=== PATIENT | female | born 1995 | race Hispanic/Latino ===

== ENCOUNTER 2020-04-13 15:17 | Emergency (ER) | payer OTHER ==
--- OUTSIDE RECORDS SUMMARY | 2020-04-13 15:20 | XMS REPORT | Continuity of Care Document ---
:1995 Author Organization [facility] t Address [address] [place] [address] Care Team Providers Name Role Phone ELLIE Attending Clinician Unavailable KATIE Attending Clinician Unavailable ELSIE Attending Clinician Unavailable ARIK Attending Clinician Unavailable GALE Attending Clinician Unavailable Problems Condition Condition Condition Status Onset Resolution Last Treating Co mments Source Name Details Category Date Date Treatment Clinician Date History of History of Problem Resolve Univers acute acute HL7.CCDAR2 d [place] [facility] [place] of History of Problem Resolve [facility] autistic autistic HL7.CCDAR2 d it y of disorder disorder [place] [facility] Facial Facial Problem Active Univers twitching twitching HL7.CCDAR2 ity of [place] [facility] Altered Altered Problem Active Univers mental mental HL7.CCDAR2 ity of status status [place] [facility] Anxiety Anxiety Problem Active Univers disorder disorder HL7.CCDAR2 it y of [place] [facility] Autism Autism Problem Active Univers spectrum spectrum HL7.CCDAR2 it y of [place] [facility] Insomnia Insomnia Problem Active Unive rs HL7.CCDAR2 ity of [place] [facility] Simple Simple Problem Active Univers tics tics HL7.CCDAR2 ity of [place] [facility] Agitation Agitation Problem Active Uni vers HL7.CCDAR2 ity of [place] [facility] Allergies, Adverse Reactions, Alerts Allergy Allergy Status Severity Reaction(s) Onset Inactive Treating Comm ents Source Name Type Date Date Clinician Penicill drug Active Univers ins allergy ity of [place] [facility] Family History Family Member Diagnosis Comments Start Date Stop Date Source Father Family history of Univers ity of hypertension [place] [facility] ians Father Family history of Univers ity of malignant neoplasm of [place] Physicians kidney Father Family history of Univers ity of hyperlipidemia [place] [facility] Social History Smoking Status Start Date Stop Date Source Never smoker [facility] [place] [facility] Medications Ordered Filled Start Stop Current Ordering Indication Dosage Frequency Signature Comments Components Source Medication Medication Date Date Medication? Clinician (SIG) Name Name Citalopram Citalopram Yes ANGEL 1 TAKE 1 Univers Hydrobromid Hydrobromid 1-26 TANNU M.D. TABLET ity of e 20 MG e 20 MG 00:00: EVERY [place] Oral Tablet Oral Tablet 00 MORNING Physici ans Depo-Family Therapist Depo-Family Therapist 2015-11 Yes ROBERT Univers a 150 MG/ML a 150 MG/ML -21 ARIK ity of Intramuscul Intramuscul 00:00: M.D. [place] ar ar 00 Physici Suspension Suspension ans HydrOXYzine HydrOXYzine Yes ANGEL 1 TAKE 1 Univers Pamoate 25 Pamoate 25 3-04 TANNU M.D. CAPSULE ity of MG Oral MG Oral 00:00[place] B[place]TIME [place] Capsule Capsule 00 [place] ans RisperiDONE RisperiDONE Yes ANGEL 1 TAKE 1 Univers 1 MG Oral 1 MG Oral 1-08 TANNU M.D. TABLET AT ity of Tablet Tablet 00:00: BEDTIME. [place] 00 Physici ans RisperiDONE RisperiDONE Yes ANGEL 1 TAKE 1 Univers 0.5 MG Oral 0.5 MG Oral TANNU M.D. TABLET ity of Tablet Tablet EVERY [place] MORNING Physici ans Immunizations Ordered Immunization Filled Immunization Date Status Commen ts Source Name Name Fluzone Quadrivalent 2016-10-29 Completed Univ ersity of 0.5 ML Intramuscular 12:57:00 Jessica casiano Physicians Suspension Vital Signs Vital Name Observation Time Observation Value Comments Source BP Systolic 2017-12-23 99 mm[Hg] Location: formerly [facility] 16:14:00 Position: [place] Physician s Sitting BP Diastolic 2017-12-23 62 mm[Hg] Location: formerly [facility] 16:14:00 Position: [place] Physician s Sitting Height 2017-12-23 62 [in_us] [facility] 16:14:00 [place] Physician s Weight 2017-12-23 124 [lb_av] [facility] 16:14:00 [place] [facility] s Body Mass Index 2017-12-23 22.68 kg/m2 [place] o f Calculated 16:14:00 [place] Phys[facility] s Temperature 2017-12-23 98 [degF] Method: Oral [facility] 16:14:00 [place] [facility] Heart Rate 2017-12-23 70 /min Quality: Normal University o f 16:14:00 [place] [facility] s Respiration Rate 2017-12-23 14 /min Quality: Normal Universi ty of 16:14:00 [place] Phys[facility] s O2 SAT 2017-12-23 100 % Source: [facility] 16:14:00 [place] Phys[facility] s BP Systolic 2017-10-13 99 mm[Hg] Location: formerly [facility] 09:15:00 Position: [place] Physician s Sitting BP Diastolic 2017-10-13 64 mm[Hg] Location: formerly [facility] 09:15:00 Position: [place] Physician s Sitting Height 2017-10-13 62 [in_us] [facility] 09:15:00 [place] [facility] s Weight 2017-10-13 124 [lb_av] [facility] 09:15:00 [place] [facility] s Body Mass Index 2017-10-13 22.68 kg/m2 University o f Calculated 09:15:00 [place] [facility] s Temperature 2017-10-13 98 [degF] Method: Oral University 09:15:00 [place] [facility] Heart Rate 2017-10-13 72 /min Quality: Normal University o f 09:15:00 [place] [facility] s Respiration Rate 2017-10-13 14 /min Quality: Normal Universi ty of 09:15:00 [place] [facility] s O2 SAT 2017-10-13 100 % Source: [facility] 09:15:00 [place] [facility] s Procedures Procedure Date / Time Performing Source Performed Clinician [QLH] TSH, 3RD GENERATION W/REFLEX 2017-09-08 [facility] FT4 00:00:00 [place] [facility] [QLH] URINALYSIS, COMPLETE 2017-09-08 Unive rsity of 00:00:00 [place] [facility] [QLH] CBC (INCLUDES DIFF/PLT) 2017-09-08 Un iversity of 00:00:00 [place] [facility] [QLH] CMP W/EGFR 2017-09-08 [facility] 00:00:00 [place] [facility] [QLH] VITAMIN B12 2017-09-08 [facility] 00:00:00 [place] [facility] [QLH] MAGNESIUM 2017-09-08 University 00:00:00 [place] [facility] [QLH] HEMOGLOBIN A1c 2017-09-08 [facility] 00:00:00 [place] [facility] [QLH] IRON AND TOTAL IRON BINDING 2017-09-08 [place] of CAPACITY 00:00:00 [place] [facility] [QLH] CULTURE, URINE, ROUTINE 2017-09-08 Un iversity of 00:00:00 [place] [facility] History of University of Esophagogastroduodenoscopy [place] [facility] Transoral Flexible Encounters Start End Encounter Admission Attending Care Care Encounter Source Date/Time Date/Time Type Type Clinicians Facility Department ID 2017-12-23 2017-12-23 LIZY Shook Psychiatry [id number] Univers 16:00:00 16:00:00 t; ANGEL ARGUETA ity of [place]IL[place], M.D. [place] M.D. Physici ans 2017-12-04 2017-12-04 LIZY Shook Psychiat[facility] [id number] Univers 15:30:00 15:30:00 t; ANGEL ARGUETA ity of [place], M.D. [place] Negrita Phys[facility] ans 2017-10-13 2017-10-13 LIZY Shook Psychiatry [id number] Univers 09:00:00 09:00:00 t; ANGEL ARGUETA ity of [place], M.D. [place] M.D. Physici ans 2017-09-10 2017-09-10 LIZY Shook [facility] [id number] Univers 15:30:00 15:30:00 t; ANGEL ARGUETA ity of [place], M.D. [place] M.D. Physici ans 2017-09-08 2017-09-08 LIZY Ortiz [facility] [id number] Univers 14:30:00 14:30:00 t; Fernanda LINDSEY M.D. [place] POURAN, Physici M.D. ans 2017-08-24 2017-08-24 LIZY Shook [facility] [id number] Univers 13:30:00 13:30:00 t; ANGEL ARGUETA ity of [place], M.D. [place] M.D. Physici ans 2017-07-23 2017-07-23 LIZY Shook [facility] [id number] Univers 11:00:00 11:00:00 t; ANGEL ARGUETA ity of [place], M.D. [place] M.D. Physici ans 2017-07-01 2017-07-01 LIZY Shook [facility] [id number] Univers 15:00:00 15:00:00 t; ANGEL ARGUETA ity of [place], M.D. [place] M.D. Physici ans 2017-06-23 2017-06-23 Appointmally ZIMMERMAN, LIZY UTP [id number] Univers 15:30:00 15:30:00 t; justin PASCUAL M.D. [place] RAGAVAN, Physici M.D. ans 2017-06-22 2017-06-22 Appointmen ELLIE, LIZY UTP [id number] Univers 15:30:00 15:30:00 t; ANGEL ARGUETA ity of [place], M.D. [place] M.D. Physici ans 2017-06-16 2017-06-16 Appointmen ELLIE, UTP UTP [id number] Univers 09:30:00 09:30:00 t; ANGEL ARGUETA ity of [place], M.D. [place] M.D. Physici ans 2017-04-21 2017-04-21 Linnea ZIMMERMAN, UTP UTP [id number] Univers 16:00:00 16:00:00 t; justin PASCUAL M.D. [place] Divya PASCUAL M.D. ans 2017-04-17 2017-04-17 Appointmen KATIE, LIZY UTP [id number] Univers 13:00:00 13:00:00 t; Fernanda LINDSEY M.D. [place] POURAN, Physici M.D. ans 2017-02-17 2017-02-17 Linnea ZIMMERMAN, LIZY UTP [id number] Univers 16:00:00 16:00:00 t; justin PASCUAL M.D. [place] Divya PASCUAL M.D. ans 2016-10-29 2016-10-29 Appointmen ARIK, LIZY UTP [id number] Univers 15:00:00 15:00:00 t; Tyler JONES M.D. [place] Divya JONES M.D. ans 2016-10-10 2016-10-10 Appointmen ELLIE, LIZY UTP [id number] Univers 13:00:00 13:00:00 t; ANGEL ARGUETA ity of [place], M.D. [place] M.D. Physici ans 2016-07-11 2016-07-11 Linnea ARGUETA UTP UTP [id number] Univers 16:30:00 16:30:00 t; ANGEL ARGUETA ity of [place], M.D. [place] M.D. Physici ans 2016-04-18 2016-04-18 [facility] LIZY ARGUETA UTP [id number] Univers 13:00:00 13:00:00 t; ANGEL ARGUETA ity of [place], M.D. [place] M.D. Physici ans 2015-12-05 2015-12-05 AppointLIZY Gao [facility] [id number] Univers 16:30:00 16:30:00 t; SHELDON BEASLEY M.D. i ty of Negr[place] CH[place]G Physici ans Results This patient has no known results.
[2020-04-13 16:13] LABS: Absolute Lymphocytes (CBC) 1.1 K/uL (0.7-4.9); Basophils % 0.3 % (0-1.3); Hematocrit 37.3 % (36.0-45.0); MPV 9.7 fL (7.6-11.3); RBC Red Blood Cell Count 4.16 M/uL (3.86-4.86)
[2020-04-13 16:37] LABS: BUN Blood Urea Nitrogen 13 mg/dL (7-18); Bicarbonate 25 mmol/L (21-32); Glucose Level 91 mg/dL (74-106); Potassium 4.1 mmol/L (3.5-5.1); Sodium Level 141 mmol/L (136-145); Troponin (Emerg Dept Use Only) < 0.02 ng/mL (0.0-0.045)
[2020-04-13] MEDS ORDERED: NA CHLORIDE 0.9% 1,000 ML ONE (16:37)
--- NOTE | 2020-04-13 16:41 | EDPHYS ---
Physician Documentation [facility] Name: Dory Hall Age: 25 yrs Sex: Female : 1995 Arrival Date: 04/13/2020 Time: 15:33 Bed 16 Private MD: ED Physician Gamaliel Joshi HPI: 04/13 16:21 This 25 yrs old Female presents to ER via EMS with complaints of Syncope. rn 16:21 The patient has experienced syncope. Onset: The symptoms/episode began/occurred just rn prior to arrival. Duration: This was a single episode. Associated injury: Head/face:. Associated signs and symptoms: The patient has no apparent associated signs or symptoms, Pertinent negatives: abdominal pain, chest pain, confusion, headache, seizure, vomiting, weakness. Current symptoms: Currently, the patient is not experiencing any symptoms. The patient has not experienced similar symptoms in the past. The patient has not recently seen a physician. Mother reports standing outside at [place], no recent complaints or problems, seemed to get lightheaded, started to fall, mother caught her, scraped face on fence structure, mother denies hitting head hard, states briefly passed out, woke up when on ground, now back to baseline. No hx of seizures or syncope. . 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 - Social history:: Smoking status: Patient denies any tobacco usage or history of. - Family history:: not pertinent. - Hospitalizations: : No recent hospitalization is reported. ROS: 16:21 Constitutional: Negative for fever, chills, and weight loss, Eyes: Negative for injury, rn pain, redness, and discharge, Cardiovascular: Negative for chest pain, palpitations, and edema, Respiratory: Negative for shortness of breath, cough, wheezing, and pleuritic chest pain, Abdomen/GI: Negative for abdominal pain, nausea, vomiting, diarrhea, and constipation, MS/Extremity: Negative for injury and deformity, Skin: Negative for injury, rash, and discoloration, Neuro: Negative for headache, weakness, numbness, tingling, and seizure. Exam: 16:21 Constitutional: This is a well developed, well nourished patient who is awake, alert, rn and in no acute distress. Head/Face: Normocephalic, atraumatic. Eyes: Pupils equal round and reactive to light, extra-ocular motions intact. Lids and lashes normal. Conjunctiva and sclera are non-icteric and not injected. Cornea within normal limits. Periorbital areas with no swelling, redness, or edema. ENT: MMM, no oral trauma, teeth aligned. Neck: Trachea midline, no thyromegaly or masses palpated, and no cervical lymphadenopathy. Supple, full range of motion without nuchal rigidity, or vertebral point tenderness. No Meningismus. Cardiovascular: Regular rate and rhythm. No pulse deficits. Respiratory: No increased work of breathing, no retractions or nasal flaring. Abdomen/GI: soft, non-tender Skin: Warm, dry with normal turgor. Normal color with no rashes, no lesions, and no evidence of cellulitis. MS/ Extremity: Pulses equal, no cyanosis. Neurovascular intact. Full, normal range of motion. Equal circumference. Neuro: Awake and alert, moves all 4 extremities without apparent pain, using electronic device, tracks my movements, but non-verbal. Per mother, neurologically at baseline. 16:27 ECG was reviewed by the Attending Physician. rn Vital Signs: 15:34 BP 102 / 67; Pulse 79; Resp 18; Temp 98.4(TE); Pulse Ox 100% on R/A; vc 17:01 BP 106 / 64; Pulse 84; Resp 18; Pulse Ox 100% on R/A; vc MDM: 15:35 Patient medically screened. rn 16:39 Differential Diagnosis: cardiac arrhythmia, idiopathic syncope, vasovagal episode. Data rn reviewed: vital signs, nurses notes, lab test result(s), EKG, and as a result, I will discharge patient. Counseling: I had a detailed discussion with the patient and/or guardian regarding: the historical points, exam findings, and any diagnostic results supporting the discharge/admit diagnosis, lab results, the need for outpatient follow up, to return to the emergency department if symptoms worsen or persist or if there are any questions or concerns that arise at home. Special discussion: I discussed with the patient/guardian in detail that at this point there is no indication for admission to the hospital. It is understood, however, that if the symptoms persist or worsen the patient needs to return immediately for re-evaluation. 04/13 15:45 Order name: CBC with Diff; Complete Time: 16:36 rn 04/13 15:45 Order name: Basic Metabolic Panel; Complete Time: 16:39 rn 04/13 15:45 Order name: IV Start; Complete Time: 16:15 rn 04/13 15:45 Order name: Troponin (emerg Dept Use Only); Complete Time: 16:39 rn 04/13 15:45 Order name: EKG; Complete Time: 15:46 rn 04/13 15:45 Order name: EKG - Nurse/Tech; Complete Time: 16:15 rn EC:27 Rate is 83 beats/min. Rhythm is regular. QRS [place] is Normal. [place] interval is normal. QRS rn interval is normal. QT interval is normal. No Q waves. T waves are Normal. No ST changes noted. Clinical impression: Normal ECG. Interpreted by me. Reviewed by me. Administered Medications: 16:30 Drug: NS 0.9% 1000 ml Route: IV; Rate: 1000 ml; Site: left antecubital; vc Disposition: 04/13/20 16:40 Discharged to Home. Impression: Syncope and collapse. - Condition is Stable. - Discharge Instructions: Syncope. - Medication Reconciliation Form, Thank You Letter, Antibiotic Education, Prescription Opioid Use form. - Follow up: Private Physician; When: As needed; Reason: Recheck today's complaints, Re-evaluation by your physician. - Problem is new. - Symptoms have improved. Signatures: Dispatcher [employer] EDMS Gamaliel Joshi MD MD rn Calcote, Vanessa, RN RN vc Corrections: (The following items were deleted from the chart) 17:17 16:40 04/13/2020 16:40 Discharged to Home. Impression: Syncope and collapse. Condition vc is Stable. Forms are Medication Reconciliation Form, Thank You Letter, Antibiotic Education, Prescription Opioid Use. Follow up: Private Physician; When: As needed; Reason: Recheck today's complaints, Re-evaluation by your physician. Problem is new. Symptoms have improved. rn
--- NOTE | 2020-04-13 16:41 | ER ---
Nurse's Notes [facility] Name: Dory Hall Age: 25 yrs Sex: Female : 1995 Arrival Date: 04/13/2020 Time: 15:33 Bed 16 Private MD: Diagnosis: Syncope and collapse Presentation: 04/13 15:34 Chief complaint: EMS states: "Patient was at [facility] when she had an episode of syncope, vc patient was unconscious for 2-3 seconds. When we arrived BP was 80/50, we administered 300 ml blood pressure increased to 114/68. She was orthostatic positive, pulse jumped from 70's to 95 when she sat up.". Coronavirus screen: Proceed with normal triage. Patient denies a cough. Patient denies shortness of breath or difficulty breathing. Patient denies measured and/or subjective temperature greater than 100.4F prior to today's visit. Patient denies travel on a cruise ship or to a country the [facility] currently lists as an affected area. Patient denies contact with known and/or suspected case of COVID-19. Ebola Screen: No symptoms or risks identified at this time. Initial Sepsis Screen: Does the patient meet any 2 criteria? No. Patient's initial sepsis screen is negative. Does the patient have a suspected source of infection? No. Patient's initial sepsis screen is negative. Risk Assessment: Do you want to hurt yourself or someone else? Unable to obtain. Onset of symptoms was April 13, 2020. 15:34 Method Of Arrival: EMS: [facility] vc 15:34 Acuity: GASPER 2 vc Triage Assessment: 16:00 General: Appears in no apparent distress. Behavior is calm, cooperative, flat, vc listless. Pain: Unable to use pain scale. Patient is a pre-verbal child. Neuro: Reports Patient is non-verbal. 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 - Social history:: Smoking status: Patient denies any tobacco usage or history of. - Family history:: not pertinent. - Hospitalizations: : No recent hospitalization is reported. Screenin:00 Abuse screen: Denies threats or abuse. Nutritional screening: No deficits noted. vc Tuberculosis screening: No symptoms or risk factors identified. Fall Risk Fall in past 12 months (25 points). No secondary diagnosis (0 pts). IV access (20 points). Ambulatory Aid- None/Bed Rest/Nurse Assist (0 pts). Gait- Normal/Bed Rest/Wheelchair (0 pts) Mental Status- Overestimates/Forgets Limitations (15 pts.). Assessment: 16:00 General: Appears in no apparent distress. uncomfortable, Behavior is calm, cooperative, vc appropriate for age. Pain: Unable to use pain scale. Does not appear to understand pain scale. Patient is a pre-verbal child. Neuro: Level of Consciousness is lethargic, listless, Oriented to person, Patient is non-verbal, autistic.. Cardiovascular: Rhythm is sinus rhythm. Respiratory: Respiratory effort is even, unlabored, Respiratory pattern is regular, symmetrical. GI: No signs and/or symptoms were reported involving the gastrointestinal system. : No signs and/or symptoms were reported regarding the genitourinary system. Derm: Skin is intact, is healthy with good turgor, Skin temperature is warm. Musculoskeletal: Circulation, motion, and sensation intact. Range of motion: intact in all extremities. 17:00 Reassessment: Patient appears in no apparent distress at this time. Patient and/or vc family updated on plan of care and expected duration. Pain level reassessed. Patient is alert, oriented x 3, equal unlabored respirations, skin warm/dry/pink. Patient states symptoms have improved. Vital Signs: 15:34 BP 102 / 67; Pulse 79; Resp 18; Temp 98.4(TE); Pulse Ox 100% on R/A; vc 17:01 BP 106 / 64; Pulse 84; Resp 18; Pulse Ox 100% on R/A; vc ED Course: 15:33 Patient arrived in ED. vc 15:35 Gamaliel Joshi MD is Attending Physician. rn 15:38 Triage completed. vc 15:53 Iram Tinsley RN is Primary Nurse. vc 16:00 Arm band placed on right wrist. vc 17:00 No provider procedures requiring assistance completed. IV discontinued, intact, vc bleeding controlled, No redness/swelling at site. Pressure dressing applied. Administered Medications: 16:30 Drug: NS 0.9% 1000 ml Route: IV; Rate: 1000 ml; Site: left antecubital; vc Outcome: 16:40 Discharge ordered by . rn 17:15 Discharged to home ambulatory, with family. vc 17:15 Condition: good 17:15 Discharge instructions given to patient, family, Instructed on discharge instructions, follow up and referral plans. Demonstrated understanding of instructions, follow-up care. 17:17 Patient left the ED. vc Signatures: Gamaliel Joshi MD MD rn Calcote, Vanessa, RN RN vc Corrections: (The following items were deleted from the chart) 22:54 22:49 General: Appears in no apparent distress. uncomfortable, Behavior is calm, vc cooperative, appropriate for age, vc 22:54 22:49 Pain: Unable to use pain scale. Does not appear to understand pain scale. Patient vc is a pre-verbal child. vc 22: 22:49 Neuro: Level of Consciousness is lethargic, listless, Oriented to person, Patient vc is non-verbal, autistic.. vc 22:54 22:49 Cardiovascular: Rhythm is sinus rhythm vc vc 22:54 22:49 Respiratory: Respiratory effort is even, unlabored, Respiratory pattern is vc regular, symmetrical, vc 22:54 22:49 GI: No signs and/or symptoms were reported involving the gastrointestinal system. vc vc 22:54 22:49 : No signs and/or symptoms were reported regarding the genitourinary system. vc vc 22: 22:49 Derm: Skin is intact, is healthy with good turgor, Skin temperature is warm vc vc 22:54 22:49 Musculoskeletal: Circulation, motion, and sensation intact. Range of motion: vc intact in all extremities, vc
[2020-04-13 17:25] VITALS: BP 102/67; TEMP 98.4; O2SAT 100
== END 2020-04-13 17:17 | disposition home or self-care (01) ==
LOC: ER 15:17
DX: R55 Syncope and collapse (principal); F84.0 Autistic disorder
CPT/HCPCS: 93005; 85025; 80048; 36415; 84484; 99284; J7030

== ENCOUNTER 2020-12-21 17:30 | Emergency (ER) | payer OTHER ==
--- NOTE | 2020-12-21 18:49 | ER ---
Nurse's Notes [facility] Name: Dory Hall Age: 25 yrs Sex: Female : 1995 Arrival Date: 12/21/2020 Time: 17:34 Bed Waiting Private MD: Diagnosis: Pain in throat Presentation: 12/21 18:03 Chief complaint: Patient states: Possible sore throat for 2 days. No fever. Seems to ll1 hurt when swallowing food. Coronavirus screen: Client denies travel out of the [place] in the last 14 days. sore throat, Client presents with at least one sign or symptom that may indicate coronavirus-19. Standard/surgical mask placed on the client. Ebola Screen: Patient denies travel to an Ebola-affected area in the 21 days before illness onset. Initial Sepsis Screen: Does the patient meet any 2 criteria? No. Patient's initial sepsis screen is negative. Does the patient have a suspected source of infection? Yes: Other: throat. Risk Assessment: Do you want to hurt yourself or someone else? Patient reports no desire to harm self or others. Onset of symptoms was December 20, 2020. 18:03 Method Of Arrival: Ambulatory ll1 18:03 Acuity: GASPER 4 ll1 Triage Assessment: 18:10 General: Appears in no apparent distress. Behavior is calm, appropriate for age, ll1 uncooperative. Pain: Complains of pain in throat Quality of pain is described as aching. EENT: Throat unable to visualize well, patient autistic and trouble following commands. . Reports pain when swallowing. Neuro: No deficits noted. Cardiovascular: No deficits noted. Respiratory: No deficits noted. CLERK GUIDE: 19:12 LMP N/A - control method ll1 Historical: - Allergies: 18:03 No Known Allergies; ll1 - PMHx: 18:03 Autism; Non-Verbal; GERD; ll1 - PSHx: 18:03 None; ll1 - Immunization history:: Adult Immunizations up to date. - Social history:: Smoking status: Patient denies any tobacco usage or history of. Screenin:10 Abuse screen: Denies threats or abuse. Nutritional screening: No deficits noted. ll1 Tuberculosis screening: No symptoms or risk factors identified. Fall Risk Mental Status- Overestimates/Forgets Limitations (15 pts.). Total Taveras Fall Scale indicates No Risk (0-24 pts). Assessment: 19:11 Respiratory: Airway is patent Trachea midline Respiratory effort is even, unlabored, ll1 Respiratory pattern is regular, symmetrical, Breath sounds are clear bilaterally. 19:11 Reassessment: No changes from previously documented assessment. Patient and/or family ll1 updated on plan of care and expected duration. Pain level reassessed. Patient is alert, oriented x 3, equal unlabored respirations, skin warm/dry/pink. Vital Signs: 18:03 BP 112 / 69; Pulse 67; Resp 16; Temp 99.0; Pulse Ox 99% ; Weight 56.7 kg; Height 5 ft. ll1 2 in. (157.48 cm); Pain 2/10; 18:03 Body Mass Index 22.86 (56.70 kg, 157.48 cm) ll1 ED Course: 17:34 Patient arrived in ED. ds1 17:44 Brea Acevedo FNP-C is [facility]. kb 17:44 Johnny Bright MD is Attending Physician. kb 17:56 Arm band placed on. ll1 18:05 Triage completed. ll1 19:09 Amaya Thrasher RN is Primary Nurse. ll1 19:12 Patient has correct armband on for positive identification. Bed in low position. Call ll1 light in reach. Cardiac monitoring not applicable on this patient. 19:12 oral/throat exam. Patient did not have IV access during this emergency room visit. ll1 Administered Medications: 19:08 Drug: GI Cocktail without - (Maalox Suspension 30 ml, Lidocaine Liquid 2 % 15 ll1 ml) Route: PO; 19:11 Follow up: Response: No adverse reaction; RASS: Alert and Calm (0) ll1 Outcome: 18:48 Discharge ordered by . kb 19:12 Discharged to home ambulatory. ll1 19:12 Condition: stable 19:12 Discharge instructions given to patient, family, Instructed on discharge instructions, follow up and referral plans. Demonstrated understanding of instructions, follow-up care. 19:12 Patient left the ED. ll1 Signatures: Brea Acevedo FNP-C FNP-Ckb Sanford, Demi ds1 Amaya Thrasher RN RN ll1
--- NOTE | 2020-12-21 18:49 | EDPHYS ---
Physician Documentation [facility] Name: Dory Hall Age: 25 yrs Sex: Female : 1995 Arrival Date: 12/21/2020 Time: 17:34 Bed Waiting Private MD: ED Physician Johnny Bright HPI: 12/21 18:45 This 25 yrs old Female presents to ER via Ambulatory with complaints of Sore kb Throat. 18:45 The patient presents with sore throat. The patient describes throat pain as constant. kb Onset: The symptoms/episode began/occurred yesterday. Severity of symptoms: At their worst the symptoms were moderate, in the emergency department the symptoms are unchanged. Modifying factors: The symptoms are alleviated by nothing, the symptoms are aggravated by swallowing. Associated signs and symptoms: Pertinent positives: Sore throat Pertinent negatives cough, fever, flu-like symptoms, rhinorrhea. The patient has not experienced similar symptoms in the past. The patient has not recently seen a physician. Mother reports pt has been acting like her throat hurts since yesterday. States she seems to have pain with swallowing. Denies fever, cough, congestion or any other symptoms. DIRECTOR OF MARKET RESEARCH: 19:12 LMP N/A - control method ll1 Historical: - Allergies: 18:03 No Known Allergies; ll1 - PMHx: 18:03 Autism; Non-Verbal; GERD; ll1 - PSHx: 18:03 None; ll1 - Immunization history:: Adult Immunizations up to date. - Social history:: Smoking status: Patient denies any tobacco usage or history of. ROS: 18:44 Constitutional: Negative for fever, chills, and weight loss, Cardiovascular: Negative kb for chest pain, palpitations, and edema, Respiratory: Negative for shortness of breath, cough, wheezing, and pleuritic chest pain, Abdomen/GI: Negative for abdominal pain, nausea, vomiting, diarrhea, and constipation, MS/Extremity: Negative for injury and deformity, Skin: Negative for injury, rash, and discoloration, Neuro: Negative for headache, weakness, numbness, tingling, and seizure. 18:44 ENT: Positive for sore throat. Exam: 18:44 Constitutional: This is a well developed, well nourished patient who is awake, alert, kb and in no acute distress. Head/Face: Normocephalic, atraumatic. ENT: Nares patent. No nasal discharge, no septal abnormalities noted. Tympanic membranes are normal and external auditory canals are clear. Oropharynx with no redness, swelling, or masses, exudates, or evidence of obstruction, uvula midline. Mucous membranes moist. Skin: Warm, dry with normal turgor. Normal color with no rashes, no lesions, and no evidence of cellulitis. 18:44 Respiratory: the patient does not display signs of respiratory distress, Respirations: normal. 18:44 Neuro: Exam negative for acute changes. Vital Signs: 18:03 BP 112 / 69; Pulse 67; Resp 16; Temp 99.0; Pulse Ox 99% ; Weight 56.7 kg; Height 5 ft. ll1 2 in. (157.48 cm); Pain 2/10; 18:03 Body Mass Index 22.86 (56.70 kg, 157.48 cm) ll1 MDM: 18:19 Patient medically screened. kb 18:43 Data reviewed: vital signs, nurses notes. Data interpreted: Pulse oximetry: on room air kb is 99 %. Interpretation: normal. Counseling: I had a detailed discussion with the patient and/or guardian regarding: the historical points, exam findings, and any diagnostic results supporting the discharge/admit diagnosis, lab results, the need for outpatient follow up, a family practitioner, to return to the emergency department if symptoms worsen or persist or if there are any questions or concerns that arise at home. 02 18:14 Order name: Strep; Complete Time: 18:43 kb 02 18:43 Order name: Throat Culture EDMS Administered Medications: 19:08 Drug: GI Cocktail without - (Maalox Suspension 30 ml, Lidocaine Liquid 2 % 15 ll1 ml) Route: PO; 19:11 Follow up: Response: No adverse reaction; RASS: Alert and Calm (0) ll1 Disposition: 12/21/20 18:48 Discharged to Home. Impression: Pain in throat. - Condition is Stable. - Discharge Instructions: Sore Throat, [id number]. - Medication Reconciliation Form, Thank You Letter, Antibiotic Education, Prescription Opioid Use form. - Follow up: Emergency Department; When: As needed; Reason: Worsening of condition. Follow up: Private Physician; When: 2 - 3 days; Reason: Recheck today's complaints, Continuance of care, Re-evaluation by your physician. Addendum: 12/23/2020 14:33 Co-signature as Attending Physician, Johnny Bright MD I agree with the assessment and k dr plan of care. Signatures: Dispatcher [employer] EDMS Brea Acevedo, SELF SEALING FUEL TANK BUILDER-C SELF SEALING FUEL TANK BUILDER-Ckb Johnny Bright MD MD [facility] Amaya Thrasher RN RN ll1 Corrections: (The following items were deleted from the chart) 12/21 19:12 18:48 12/21/2020 18:48 Discharged to Home. Impression: Pain in throat. Condition is ll1 Stable. Forms are Medication Reconciliation Form, Thank You Letter, Antibiotic Education, Prescription Opioid Use. Follow up: Emergency Department; When: As needed; Reason: Worsening of condition. Follow up: Private Physician; When: 2 - 3 days; Reason: Recheck today's complaints, Continuance of care, Re-evaluation by your physician. kb
[2020-12-21 19:17] VITALS: BP 112/69; TEMP 99; O2SAT 99
[2020-12-21] MEDS ORDERED: MAGNES/ALUMIN/SIMET 30ML UCUP ONE (19:20)
[2020-12-21] MEDS ORDERED: LIDOCAINE VISCOUS 2% SOLN 15 ML UDC ONE (19:20)
== END 2020-12-21 19:12 | disposition home or self-care (01) ==
LOC: ER 17:30
DX: R07.0 Pain in throat (principal); F84.0 Autistic disorder
CPT/HCPCS: 87070; 87081; 99283

== ENCOUNTER 2022-05-02 16:53 | Emergency (ER) | payer BC, OTHER ==
--- OUTSIDE RECORDS SUMMARY | 2022-05-02 16:56 | XMS REPORT | Continuity of Care Document ---
:1995 Author Organization [facility] t Address [address] [place] [address] Care Team Providers Name Role Phone ELLIE Attending Clinician Unavailable KATIE Attending Clinician Unavailable ELSIE Attending Clinician Unavailable ARIK Attending Clinician Unavailable GALE Attending Clinician Unavailable Problems Condition Condition Condition Status Onset Resolution Last Treating Co mments Source Name Details Category Date Date Treatment Clinician Date History of History of Problem Resolve [facility] acute acute HL7.CCDAR2 d Physic i sinusitis sinusitis ans History of History of Problem Resolve [facility] autistic autistic HL7.CCDAR2 d Ph ysici disorder disorder ans Facial Facial Problem Active [facility] twitching twitching HL7.CCDAR2 Physici ans Altered Altered Problem Active [facility] mental mental HL7.CCDAR2 Physic i status status ans Anxiety Anxiety Problem Active [facility] disorder disorder HL7.CCDAR2 Ph ysici ans Autism Autism Problem Active UT spectrum spectrum HL7.CCDAR2 Ph ysici ans Insomnia Insomnia Problem Active [facility] HL7.CCDAR2 Physic i ans Simple Simple Problem Active [facility] tics tics HL7.CCDAR2 Physic i ans Agitation Agitation Problem Active [facility] HL7.CCDAR2 Physic i ans Allergies, Adverse Reactions, Alerts Allergy Allergy Status Severity Reaction(s) Onset Inactive Treating Comm ents Source Name Type Date Date Clinician Penicill drug Active [facility] ins allergy Physici ans Family History Family Member Diagnosis Comments Start Date Stop Date Source Father Family history of [facility] hypertension Father Family history of malignant [facility] neoplasm of kidney Father Family history of [facility] hyperlipidemia Social History Smoking Status Start Date Stop Date Source Never smoker [facility] Medications Ordered Filled Start Stop Current Ordering Indication Dosage Frequency Signature Comments Components Source Medication Medication Date Date Medication? Clinician (SIG) Name Name Citalopram Citalopram 2018-0 Yes ANGEL 1 TAKE 1 [facility] Hydrobromid Hydrobromid 12-04 TANNU M.D. TABLET Physici e 20 MG e 20 MG 00:00: EVERY ans Oral Tablet Oral Tablet 00 MORNING Depo-Parking Meter Attendant Depo-Parking Meter Attendant 2015-11 Yes ROBERT UT a 150 MG/ML a 150 MG/ML 12-30 ARIK Physici Intramuscul Intramuscul 00:00: M.D. ans ar ar 00 Suspension Suspension HydrOXYzine HydrOXYzine Yes ANGEL 1 TAKE 1 UT Pamoate 25 Pamoate 25 3-04 TANNU M.D. CAPSULE Physici MG Oral MG Oral 00:00: BEDTIME ans Capsule Capsule 00 RisperiDONE RisperiDONE Yes ANGEL 1 TAKE 1 UT 1 MG Oral 1 MG Oral 108 TANNU M.D. TABLET AT Physici Tablet Tablet 00:00: BEDTIME. ans 00 RisperiDONE RisperiDONE Yes ANGEL 1 TAKE 1 UT 0.5 MG Oral 0.5 MG Oral TANNU M.D. TABLET Physici Tablet Tablet EVERY ans MORNING Immunizations Ordered Immunization Filled Immunization Date Status Commen ts Source Name Name Fluzone Quadrivalent 2016-10-29 Completed [facility]ys[facility] 0.5 ML Intramuscular 12:57:00 Suspension Vital Signs Vital Name Observation Time Observation Value Comments Source BP Systolic 2017-12-23 16:14:00 99 mm[Hg] Location: [facility] [place] [facility] Position: Sitting BP Diastolic 2017-12-23 16:14:00 62 mm[Hg] Location: [facility] Position: Sitting Height 2017-12-23 16:14:00 62 [in_us] [facility] Weight 2017-12-23 16:14:00 124 [lb_av] [facility] Body Mass Index 2017-12-23 16:14:00 22.68 kg/m2 [facility] Calculated Temperature 2017-12-23 16:14:00 98 [degF] Method: Oral [facility] Heart Rate 2017-12-23 16:14:00 70 /min Quality: Normal [facility] Respiration Rate 2017-12-23 16:14:00 14 /min Quality: Normal [facility] O2 SAT 2017-12-23 16:14:00 100 % Source: RA [facility] BP Systolic 2017-10-13 09:15:00 99 mm[Hg] Location: [facility] Position: Sitting BP Diastolic 2017-10-13 09:15:00 64 mm[Hg] Location: LUE; [facility] Position: Sitting Height 2017-10-13 09:15:00 62 [in_us] [facility] Weight 2017-10-13 09:15:00 124 [lb_av] [facility] Body Mass Index 2017-10-13 09:15:00 22.68 kg/m2 [facility] Calculated Temperature 2017-10-13 09:15:00 98 [degF] Method: Oral [facility] Heart Rate 2017-10-13 09:15:00 72 /min Quality: Normal [facility] Respiration Rate 2017-10-13 09:15:00 14 /min Quality: Normal [facility] O2 SAT 2017-10-13 09:15:00 100 % Source: RA [facility] Procedures Procedure Date / Time Performing Source Performed Clinician [QLH] TSH, 3RD GENERATION W/REFLEX 2017-09-08 [facility] TO FT4 00:00:00 [QLH] URINALYSIS, COMPLETE 2017-09-08 [facility] 00:00:00 [QLH] CBC (INCLUDES DIFF/PLT) 2017-09-08 [facility] 00:00:00 [QLH] CMP W/EGFR 2017-09-08 [facility] 00:00:00 [QLH] VITAMIN B12 2017-09-08 [facility] 00:00:00 [QLH] MAGNESIUM 2017-09-08 [facility] 00:00:00 [QLH] HEMOGLOBIN A1c 2017-09-08 [facility] ns 00:00:00 [QLH] IRON AND TOTAL IRON BINDING 2017-09-08 [facility] CAPACITY 00:00:00 [QLH] CULTURE, URINE, ROUTINE 2017-09-08 [facility] 00:00:00 History of [facility] Esophagogastroduodenoscopy Transoral Flexible Encounters Start End Encounter Admission Attending Care Care Encounter Source Date/Time Date/Time Type Type Clinicians Facility Department ID 2017-12-23 2017-12-23 [facility] [id number] [place] 16:00:00 16:00:00 t; ANGEL ARGUETA Phys ici NILESH, M.D. ans M.D. 2017-12-04 2017-12-04 [facility] [id number] [place] 15:30:00 15:30:00 t; ANGEL ARGUETA Phys ici NILESH, M.D. ans M.D. 2017-10-13 2017-10-[facility], [facility] [id number] [place] 09:00:00 09:00:00 t; ANGEL ARGUETA Phys Negrita Ordaz MHollis 2017-09-10 2017-09-10 [facility] ELLIE, [facility] [id number] [place] 15:30:00 15:30:00 t; ANGEL ARGUETA Phys Negrita Ordaz MHollis 2017-09-08 2017-09-08 [facility] KATIE, [facility] [id number] [place] 14:30:00 14:30:00 t; Richard LINDSEY i, M.D. ans POURAN, M.D. 2017-08-24 2017-08-24 [facility] BEATAAidan, [facility] [id number] [place] 13:30:00 13:30:00 t; ANGEL ARGUETA Phys ici NILESH, M.D. ans M.D. 2017-07-23 2017-07-23 [facility] ELLIE, [facility] [id number] [place] 11:00:00 11:00:00 t; ANGEL ARGUETA Phys ici NILESH, M.D. ans MHollis 2017-07-01 2017-07-01 [facility] BEATAU, [facility] [id number] [place] 15:00:00 15:00:00 t; ANGEL ARGUETA Phys ici NILESH, M.D. ans M.D. 2017-06-23 2017-06-23 [facility] ELSIE, [facility] [id number] [place] 15:30:00 15:30:00 t; Lottie PASCUAL M.D. ans RAGAVAN, M.D. 2017-06-22 2017-06-22 [facility] ELLIE, [facility] [id number] [place] 15:30:00 15:30:00 t; ANGEL ARGUETA Phys Negrita Ordaz MHollis 2017-06-16 2017-06-16 [facility] ELLIE, [facility] [id number] [place] 09:30:00 09:30:00 t; TANNU, [place] ORTIZ M.D. ans M.D. 2017-04-21 2017-04-21 [facility] ELSIE, [facility] [id number] [place] 16:00:00 16:00:00 t; ANKUR Physi Negrita Espino M.D. 2017-04-17 2017-04-17 [facility] KATIE, [facility]TP [id number] [place] 13:00:00 13:00:00 t; Richard LINDSEY i, M.D. ans POURAN, M.D. 2017-02-17 2017-02-17 [facility] ELSIE, [facility] [id number] [place] 16:00:00 16:00:00 t; ANKUR Physi Negrita Espino M.D. 2016-10-29 2016-10-29 [facility] ARIK, [facility] [id number] [place] 15:00:00 15:00:00 t; Richard JONES i, M.D. ans CARMAN, M.D. 2016-10-10 2016-10-10 [facility] ELLIE, [facility] [id number] [place] 13:00:00 13:00:00 t; ANGEL ARGUETA Phys ici NILESH, M.D. ans M.D. 2016-07-11 2016-07-11 [facility] ELLIE, [facility] [id number] [place] 16:30:00 16:30:00 t; ANGEL ARGUETA Phys ici NILESH, M.D. ans M.D. 2016-04-18 2016-04-18 [facility] ELLIE, [facility] [id number] [place] 13:00:00 13:00:00 t; ANGEL ARGUETA Phys ici NILESH, M.D. ans M.D. 2015-12-05 2015-12-05 [facility] GALE, [facility]TP [id number] [place] 16:30:00 16:30:00 t; SHELDON BEASLEY M.D. P hysici SABA, M.D. ans Results This patient has no known results.
[2022-05-02] MEDS ORDERED: LORazepam 2 MG/ML VIAL ONE (19:18)
[2022-05-02 19:22] LABS: Lymphocytes % 29.5 % (15.3-44.8); MPV 9.5 fL (7.6-11.3); RBC Red Blood Cell Count 4.56 M/uL (3.86-4.86)
[2022-05-02 19:36] LABS: Albumin 3.5 g/dL (3.4-5.0); Bilirubin Total 0.3 mg/dL (0.2-1.0); Potassium 3.7 mmol/L (3.5-5.1); Protein, Total 7.2 g/dL (6.4-8.2)
[2022-05-02 21:04] LABS: Urine Blood Negative (Negative); Urine Glucose Trace (Negative); Urine Protein Negative (Negative)
--- NOTE | 2022-05-02 22:04 | RAD REPORT ---
EXAM DESCRIPTION: CT - Stone Protocol - 05/02/2022 9:45 pm CLINICAL HISTORY: urinary retention COMPARISON: <Comparisons> TECHNIQUE: Axial 3 mm thick images were obtained without oral or IV contrast. The [id number] span s the entirety of the system including uppermost abdomen and lung bases. All CT scans are performed using dose optimization technique as appropriate and may include automated exposure control or mA/KV adjustment according to patient size. FINDINGS: No hydronephrosis is present and no obstructing ureteral calculi. No suspicious renal mass es. Isodense masses and pyelonephritis are not excluded on a stone protocol CT scan. No significant a drenal finding. Urinary bladder is contracted around a Armas catheter. No bladder calculi seen. No ut erine or ovarian abnormality identifiable. Imaged portions of the liver, spleen and pancreas show no suspicious findings on non-contrast imaging . Gallbladder is contracted. No biliary tree dilatation. No dilated bowel. Acute GI finding is not confirmed. The amount of body movement limits the middle or pelvic bowel assessment. No hernia, mass or bulky lymphadenopathy noted. No free air, free fluid or inflammatory stranding. No significant bony abnormality. IMPRESSION: No hydronephrosis or acute finding. Urinary bladder is contracted around a Armas cath eter. Isodense masses and pyelonephritis are not excluded on stone protocol technique. Exam has motion degradation which is somewhat limiting. No acute findings are identifiable.
[2022-05-02 22:14] LABS: Urine Bacteria <20 /HPF (<20); Urine Mucus MOD /HPF (NONE SEEN); Urine RBC NONE SEEN /HPF (NONE SEEN)
--- NOTE | 2022-05-02 22:55 | EDPHYS ---
Physician Documentation [facility] Name: Dory Hall Age: 27 yrs Sex: Female : 1995 Arrival Date: 05/02/2022 Time: 16:59 Bed 26 Private MD: ED Physician Gamaliel Joshi HPI: 05/02 18:40 This 27 yrs old Female presents to ER via Ambulatory with complaints of cp Urinary Retention. 18:40 The patient presents with urinary symptoms, urinary retention. Onset: The cp symptoms/episode began/occurred today. Associated signs and symptoms: Pertinent negatives: diarrhea, fever, vomiting, constipation. Severity of symptoms: in the emergency department the symptoms are unchanged, despite home interventions. 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 - Social history:: Smoking status: Patient denies any tobacco usage or history of. ROS: 18:45 Constitutional: Negative for body aches, chills, fever, poor PO intake. cp 18:45 Eyes: Negative for injury, pain, redness, and discharge. cp 18:45 ENT: Negative for ear pain, sore throat, difficulty swallowing, difficulty handling secretions. 18:45 Cardiovascular: Negative for chest pain. 18:45 Respiratory: Negative for cough, shortness of breath, wheezing. 18:45 Abdomen/GI: Negative for abdominal pain, vomiting, diarrhea, constipation. 18:45 : Positive for difficulty urinating. 18:45 Neuro: Negative for altered mental status. 18:45 All other systems are negative. Exam: 18:50 Constitutional: The patient appears in no acute distress, alert, awake, non-toxic, well cp developed, well nourished. 18:50 Head/Face: Normocephalic, atraumatic. cp 18:50 Eyes: Periorbital structures: appear normal, Conjunctiva: normal, no exudate, no injection, Sclera: no appreciated abnormality, Lids and lashes: appear normal, bilaterally. 18:50 ENT: External ear(s): are unremarkable, Nose: is normal, Mouth: Lips: moist, Oral mucosa: moist, Posterior pharynx: Airway: no evidence of obstruction, patent. 18:50 Chest/axilla: Inspection: normal. 18:50 Cardiovascular: Rate: normal. 18:50 Respiratory: the patient does not display signs of respiratory distress, Respirations: normal, no use of accessory muscles, no retractions, labored breathing, is not present, Breath sounds: are clear throughout, no decreased breath sounds, no stridor, no wheezing. 18:50 Abdomen/GI: Inspection: abdomen appears normal, Palpation: abdomen is soft and non-tender, in all quadrants. 18:50 Back: CVA tenderness, is absent. 18:50 Neuro: Orientation: to person, place \T\ time. Mentation: is normal, Motor: moves all fours, strength is normal. Vital Signs: 18:19 Pulse 78; Resp 17; Temp 99.1; Pulse Ox 100% on R/A; Weight 51.26 kg; Height 5 ft. 4 in. jl7 (162.56 cm); 23:06 BP 115 / 67; Pulse 78; Resp 16; Pulse Ox 98% on R/A; jb4 18:19 Body Mass Index 19.40 (51.26 kg, 162.56 cm) jl7 MDM: 18:15 Patient medically screened. cp 22:53 Data reviewed: vital signs, nurses notes. Data interpreted: Pulse oximetry: on room air kb is 100 %. Interpretation: normal. Counseling: I had a detailed discussion with the patient and/or guardian regarding: the historical points, exam findings, and any diagnostic results supporting the discharge/admit diagnosis, lab results, radiology results, the need for outpatient follow up, a urologist, to return to the emergency department if symptoms worsen or persist or if there are any questions or concerns that arise at home. ED course: Parents do not want pt to go home with the leonard due to fear that pt will pull it out. Requests that we remove it prior to discharge. Educated on risk of having to return to replace leonard if symptoms return. Parents understand and are ok with coming back if needed. . 05/02 18:32 Order name: Urine Microscopic Only; Complete Time: 22:33 cp 05/02 19:05 Order name: CBC with Diff; Complete Time: 19:57 cp 05/02 19:05 Order name: CMP; Complete Time: 19:57 cp 05/02 19:05 Order name: Lipase; Complete Time: 19:57 cp 05/02 21:04 Order name: Urine Dipstick-Ancillary; Complete Time: 22:33 EDMS 05/02 21:40 Order name: Urine --Ancillary (enter results); Complete Time: 22:33 wm 05/02 18:16 Order name: Bladder Scanner: pre and post void; Complete Time: 19:09 cp 05/02 18:32 Order name: Urine Dipstick-Ancillary (obtain specimen); Complete Time: 21:03 cp 05/02 18:32 Order name: Urine Test (obtain specimen); Complete Time: 21:03 cp 05/02 18:42 Order name: Leonard; Complete Time: 20:58 cp 05/02 19:05 Order name: IV Saline Lock; Complete Time: 19:08 cp 05/02 19:05 Order name: Labs collected and sent; Complete Time: 19:08 cp 05/02 19:57 Order name: CT Stone Protocol; Complete Time: 22:33 cp Administered Medications: 19:14 Drug: Ativan (LORazepam) 1 mg Route: IVP; Site: right antecubital; jb4 20:00 Follow up: Response: No adverse reaction jb4 Disposition Summary: 05/02/22 22:55 Discharge Ordered Location: Home kb Condition: Stable kb Diagnosis - Retention of urine, unspecified kb Followup: kb - With: Emergency Department - When: As needed - Reason: Worsening of condition Followup: kb - With: Private Physician - When: 2 - 3 days - Reason: Recheck today's complaints, Continuance of care, Re-evaluation by your physician Discharge Instructions: - Discharge Summary Sheet kb - Acute Urinary Retention, Female, [id number] kb Forms: - Medication Reconciliation Form kb - Thank You Letter kb - Antibiotic Education kb - Prescription Opioid Use kb Addendum: 05/05/2022 10:53 Co-signature as Attending Physician, Gamaliel Joshi MD. r n Signatures: Dispatcher [employer] EDBrea Heredia, DIRECTORY CLERK-C DIRECTORY CLERK-Ckb Gamaliel Joshi MD MD rn Page, Corey, PA PA Rhys England RN RN jb4 Panchito Nichole RN RN jl7 Corrections: (The following items were deleted from the chart) 05/02 20:36 20:35 The patient presents with urinary symptoms, urinary retention, cp cp :36 20:35 Onset: The symptoms/episode began/occurred today, cp cp : 20:35 Associated signs and symptoms: Pertinent negatives: diarrhea, fever, vomiting, cp constipation, cp : 20:35 Severity of symptoms: in the emergency department the symptoms are unchanged, cp despite home interventions, cp
--- NOTE | 2022-05-02 22:55 | ER ---
Nurse's Notes [facility] Name: Dory Hall Age: 27 yrs Sex: Female : 1995 Arrival Date: 05/02/2022 Time: 16:59 Bed 26 Private MD: Diagnosis: Retention of urine, unspecified Presentation: 05/02 18:19 Chief complaint: Parent and/or Guardian states: No urine output since yesterday. jl7 Coronavirus screen: At this time, the client does not indicate any symptoms associated with coronavirus-19. Ebola Screen: No symptoms or risks identified at this time. Initial Sepsis Screen: Does the patient meet any 2 criteria? No. Patient's initial sepsis screen is negative. Does the patient have a suspected source of infection? No. Patient's initial sepsis screen is negative. Risk Assessment: Do you want to hurt yourself or someone else? Patient reports no desire to harm self or others. Onset of symptoms is unknown. 18:19 Method Of Arrival: Ambulatory 7 18:19 Acuity: GASPER 3 jl7 Triage Assessment: 18:20 General: Appears in no apparent distress. uncomfortable, Behavior is cooperative. Pain: jl7 Unable to use pain scale. Does not appear to understand pain scale. 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 - Social history:: Smoking status: Patient denies any tobacco usage or history of. Screenin:06 Abuse screen: Denies threats or abuse. Nutritional screening: No deficits noted. jb4 Tuberculosis screening: No symptoms or risk factors identified. Fall Risk None identified. Assessment: 18:43 General: Appears in no apparent distress. uncomfortable, Behavior is appropriate for jb4 age. Pain: Complains of pain in suprapubic area Unable to use pain scale. FLACC scale score is 6 out of 10. Neuro: Level of Consciousness is awake, alert, Oriented to none. Cardiovascular: Patient's skin is warm and dry. Respiratory: Airway Respiratory effort is even, unlabored, Respiratory pattern is regular, symmetrical. : Bladder is distended. Derm: Skin is intact, Skin is pink, warm \T\ dry. Musculoskeletal: Circulation, motion, and sensation intact. Range of motion: intact in all extremities. 20:00 Reassessment: Patient appears in no apparent distress at this time. No changes from jb4 previously documented assessment. Patient and/or family updated on plan of care and expected duration. Pain level reassessed. 21:00 Reassessment: Patient appears in no apparent distress at this time. No changes from jb4 previously documented assessment. Patient and/or family updated on plan of care and expected duration. Pain level reassessed. 23:06 Reassessment: Patient appears in no apparent distress at this time. No changes from jb4 previously documented assessment. Patient and/or family updated on plan of care and expected duration. Pain level reassessed. Family did not want leonard to stay in place, removed prior to discharge. Vital Signs: 18:19 Pulse 78; Resp 17; Temp 99.1; Pulse Ox 100% on R/A; Weight 51.26 kg; Height 5 ft. 4 in. jl7 (162.56 cm); 23:06 BP 115 / 67; Pulse 78; Resp 16; Pulse Ox 98% on R/A; jb4 18:19 Body Mass Index 19.40 (51.26 kg, 162.56 cm) jl7 ED Course: 16:59 Patient arrived in ED. am2 17:00 Luis Nettles PA is PHCP. cp 17:00 Gamaliel Joshi MD is Attending Physician. cp 18:20 Triage completed. jl7 18:20 Arm band placed on right wrist. jl7 18:43 Rhys Mariscal, SILVERIO is Primary Nurse. jb4 20:45 Leonard cath inserted, using sterile technique, 16 Fr., by ca, balloon inflated, to bb gravity drainage. 21:47 CT Stone Protocol In Process Unspecified. EDMS 23:06 Patient has correct armband on for positive identification. Bed in low position. Call jb4 light in reach. Side rails up X 1. 23:06 No provider procedures requiring assistance completed. IV discontinued, intact, jb4 bleeding controlled, No redness/swelling at site. Pressure dressing applied. Administered Medications: 19:14 Drug: Ativan (LORazepam) 1 mg Route: IVP; Site: right antecubital; jb4 20:00 Follow up: Response: No adverse reaction jb4 Medication: 23:06 VIS not applicable for this client. jb4 Outcome: 22:55 Discharge ordered by MD. ramirez 23:06 Discharged to home ambulatory, with family. jb4 23:06 Condition: stable 23:06 Discharge instructions given to family, Instructed on discharge instructions, follow up and referral plans. Demonstrated understanding of instructions, follow-up care. 23:07 Patient left the ED. jb4 Signatures: Dispatcher [employer] EDMS Brea Acevedo, HEAVY DUTY TRUCK MECHANIC-C HEAVY DUTY TRUCK MECHANIC-Kae Crump, RN RN bb Luis Nettles, CAROLIN PA Rhys England RN RN jb4 Panchito Nichole RN RN jl7 Dionna Hall am2
[2022-05-02 23:26] VITALS: TEMP 99.1
[2022-05-02 23:42] VITALS: BP 115/67; O2SAT 98
== END 2022-05-02 23:07 | disposition home or self-care (01) ==
LOC: ER 16:53
DX: R33.9 Retention of urine, unspecified (principal)
CPT/HCPCS: 36415; 51702; 74176; 76377; 80053; 81003; 81015; 81025; 83690; 85025; 96374; 99284